=== PATIENT | female | born 1965 | race Caucasian/White ===

== ENCOUNTER 2017-01-10 18:11 | Emergency (ER) | payer BC ==
[~2017-01-10] VITALS: Ht 172.7 cm; Wt 68.0 kg
[~2017-01-10 18:11] MED LIST: TRAMADOL HCL50 MG PO
[2017-01-10] MEDS ORDERED: NORETHINDRONE0.35 MG PO (18:19)
[2017-01-10 18:24] VITALS: BP 131/82
[2017-01-10] MEDS ORDERED: Acetaminophen 500mg (ES) tab ORAL ONE (18:30)
[2017-01-10] MEDS ORDERED: Methocarbamol 500mg tab ORAL ONE (18:30)
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
[2017-01-10] MEDS ORDERED: ROBAXIN500 MG PO (19:50)
[2017-01-10] MEDS ORDERED: NORCO 5-325 TA1 EACH ORAL (19:50)
[2017-01-10 19:57] VITALS: BP 131/82
--- NOTE | 2017-01-11 11:28 | Diagnostic Imaging Report ---
Indication: TRAUMA Technique: 3 views of the cervical spine Comparison: none Findings: Bony alignment is normal. Vertebral body heights are preserved. Disc spaces are preserved. No acute fractures. No dislocations Impression: Negative This agrees with the preliminary interpretation provided by the emergency room physician
== END 2017-01-10 19:57 | disposition home or self-care (01) ==
LOC: EMR 19:13
DX: S00.93XA Contusion of unspecified part of head, initial encounter (principal); S16.1XXA Strain of muscle, fascia and tendon at neck level, initial encounter; S39.012A Strain of muscle, fascia and tendon of lower back, initial encounter; W51.XXXA Accidental striking against or bumped into by another person, initial encounter; Y92.89 Other specified places as the place of occurrence of the external cause
CPT/HCPCS: 72040; 99284

== ENCOUNTER 2018-03-06 16:29 | Emergency (ER) | payer BC ==
[~2018-03-06] VITALS: Ht 165.1 cm; Wt 63.5 kg
[~2018-03-06 16:29] MED LIST changes: +NORCO 5-325 TA1 EACH ORAL; +NORETHINDRONE0.35 MG PO; +ROBAXIN500 MG PO
[2018-03-06] MEDS ORDERED: PRILOSEC OTC20 MG ORAL (16:37)
--- NOTE | 2018-03-06 17:53 | Emergency Room Report ---
History of Present Illness General Chief Complaint: Lower Extremity Injury Source: Patient (Alfonso Liang) Present Illness HPI 52-year-old female without significant past medical history her complaining of pain in the left lateral foot after slipping her foot and mild today. Patient reports have some pain without radiation, has taken ibuprofen with minimal symptom relief. She has been icing the affected area. Denies all other injuries, denies ankle pain. Patient reports she is flying on a business trip to [place] in 2 weeks and wants to be checked to make sure there is no sprain of the left foot. Chest pain, SOB, palpitation, and other associated symptomsand denies tingling and numbness (Alfonso Liang) Allergies: Coded Allergies: No Known Allergies (Unverified , 12/31/11) Patient History Past Medical History: see triage record Past Surgical History: none Pertinent Family History: none Last Menstrual Period: n/a Now: No : 3 Para: 2 Immunizations: UTD Reviewed Nursing Documentation: PMH: Agreed; PSxH: Agreed (Alfonso Liang) Nursing Documentation-PMH Past Medical History: No Stated History (Alfonso Liang) Review of Systems All Other Systems: negative except mentioned in HPI (Alfonso Liang) Physical Exam Vital Signs Date Time Temp Pulse Resp B/P (MAP) Pulse Ox O2 Delivery O2 Flow Rate FiO2 03/06/18 16:34 97.9 71 18 134/84 96 Room Air Sp02 EP Interpretation: reviewed, normal General Appearance: normal inspection, well appearing, alert Head: normocephalic, atraumatic Eyes: bilateral eye normal inspection, bilateral eye PERRL ENT: normal ENT inspection, normal pharynx Neck: normal inspection, full range of motion, supple Respiratory: normal inspection, lungs clear, no rhonchi, no wheezing Cardiovascular #1: normal inspection, normal peripheral pulses, regular rate, rhythm, no edema, no gallop, normal capillary refill Cardiovascular #2: 2+ dorsalis pedis (R), 2+ dorsalis pedis (L) Gastrointestinal: normal inspection, soft Rectal: deferred Genitourinary: deferred Musculoskeletal: back normal, digits/nails normal, swelling - Left fifth metatarsal, tender - left fifth metatarsal tenderness to palpation Neurologic: normal inspection, alert, oriented x3 Psychiatric: normal inspection, judgement/insight normal Skin: normal inspection, normal color, no rash, other - Mild ecchymosis over her left lateral foot Lymphatic: normal inspection, no adenopathy (Alfonso Liang) Procedures Additional Procedure Procedure Narrative applied short leg splint to left foot (Alfonso Liang) Medical Decision Making PA Attestation All diagnoses and treatment plans were reviewed and discussed with supervising physician Dr. Plummer (Alfonso Liang) Diagnostic Impression: Primary Impression: Fracture of fifth metatarsal bone of left foot ER Course 52-year-old female without significant past medical history her complaining of pain in the left lateral foot after slipping her foot and mild today. Patient reports have some pain without radiation, has taken ibuprofen with minimal symptom relief. She has been icing the affected area. Denies all other injuries, denies ankle pain. Patient reports she is flying on a business trip to [place] in 2 weeks and wants to be checked to make sure there is no sprain of the left foot. Chest pain, SOB, palpitation, and other associated symptomsand denies tingling and numbness Ddx considered but are not limited to left fifth metatarsal fracture, left foot contusion, left foot sprain Vital signs: are WNL, pt. is afebrile H&PE are most consistent with left fifth metatarsal fracture ORDERS:x-ray left foot microcytic, short leg splint, tramadol per patient request, Tylenol ED INTERVENTIONS: short leg splint DISCHARGE: At this time pt. is stable for d/c to home. Will provide printed patient care instructions, and any necessary prescriptions. Care plan and follow up instructions have been discussed with the patient prior to discharge. patient reports that her brother is a doctor and has told her that has patient has stomach irritation due to NSAIDs and most narcotics he does appear to take tramadol cures have been done on patient and patient has no history she has a And only a few days' supply of tramadol can be given patient agrees (Alfonso Liang) Other X-Ray Diagnostic Results Other X-Ray Diagnostic Results : X-Ray ordered: left foot # of Views/Limited Vs Complete: 3 View Indication: Swelling EP Interpretation: Yes PA Xray: Interpretation reviewed, by supervising MD, and agrees with findings. Interpretation: no dislocation, other - fx left fifth metatarsal Impression: Other - left fifth metatarsal fx Electronically Signed by: alfonso Cooper PA-C (Alfonso Liang) Other X-Ray Diagnostic Results : Electronically Signed by: Davi Estrella documentation of Xray reviewed by me and is accurate, Rashad Plummer MD (Rashad Plummer MD) Last Vital Signs Date Time Temp Pulse Resp B/P (MAP) Pulse Ox O2 Delivery O2 Flow Rate FiO2 03/06/18 16:34 97.9 71 18 134/84 96 Room Air (Alfonso Liang) Disposition: HOME, SELF-CARE Condition: Stable Scripts Acetaminophen* (TYLENOL EXTRA STRENGTH*) 500 Mg Tablet 500 MG ORAL Q6H PRN for Mild Pain/Temp > 100.5, #30 TAB 0 Refills Prov: Alfonso Liang 03/06/18 Tramadol Hcl* (ULTRAM*) 50 Mg Tablet 50 MG ORAL Q8HR PRN for For Pain, #10 TAB 0 Refills Prov: Alfonso Liang 03/06/18 Referrals: NON PHYSICIAN (PCP) Patient Instructions: Avulsion Fracture of the Foot Additional Instructions: follow-up with orthopedic for further assessment imaging, wear splint,postop shoe is needed to use crutches correctly. Take medications as directed. Alfonso Liang Mar 06, 2018 17:53 Rashad Plummer MD Mar 07, 2018 01:31
[2018-03-06] MEDS ORDERED: TYLENOL EXTRA500 MG ORAL (17:54)
[2018-03-06] MEDS ORDERED: TRAMADOL HCL50 MG ORAL (17:54)
[2018-03-06 18:24] VITALS: BP 128/81
--- NOTE | 2018-03-07 09:40 | Diagnostic Imaging Report ---
Indication: Trauma, pain, status post fall one day ago Technique: 3 views left foot Comparison: none Findings: There is a transverse fracture the base of the fifth metatarsal. This is minimally distracted, otherwise nondisplaced. It is slightly comminuted. No other acute fractures. No dislocations. The joint spaces are preserved. There is a small plantar spur Impression: Positive for fifth metatarsal fracture This agrees with the interpretation reported by the emergency room physician in the electronic medical record
== END 2018-03-06 18:26 | disposition home or self-care (01) ==
LOC: EMR 16:55
DX: S92.355A Nondisplaced fracture of fifth metatarsal bone, left foot, initial encounter for closed fracture (principal); W18.40XA Slipping, tripping and stumbling without falling, unspecified, initial encounter; Y92.89 Other specified places as the place of occurrence of the external cause
CPT/HCPCS: 29515; 99283